=== PATIENT | female | born 1950 | race Asian ===

== ENCOUNTER 2016-10-10 21:27 | Emergency (ER) | payer MEDICARE ==
[2016-10-10] MEDS ORDERED: BOOSTRIX IM ONE (22:10)
[2016-10-10] MEDS ORDERED: ZOFRAN IV ONE (22:10)
[2016-10-10] MEDS ORDERED: SUBLIMAZE IV ONE (22:10)
[2016-10-10] MEDS ORDERED: TRIPLE ANTIBIOTIC TP ONE ×2 (22:11→22:15)
--- NOTE | 2016-10-10 22:16 | Emergency Department Report ---
HPI - General Chief Complaint: Fall Time Seen by Provider: 10/10/16 22:03 - [facility] HPI: Room 6 The patient is a 66-year-old female presenting with a chief complaint of pain after fall. The patient states that approximately 20:30 she was leaving the store when she tripped over a rug and fell landing on her right knee. The patient states she struck her trashcan with the left side of her head neck and left shoulder. Patient denies loss of consciousness. Patient complains of headache and pain in her left shoulder and neck. Patient claims pain in the right knee. The patient gives her pain a score of 10/10. Location: [see above] Duration: [see above] Quality: Pain Severity: 10/10 Modifying factors: [see above] Context: [see above] Mode of transportation: [not driving] ED Past Medical Hx - Past Medical History Previous Medical History?: Yes Hx Hypertension: Yes Hx Deep Vein Thrombosis: Yes (on Coumadin) Hx Liver Disease: Yes (Hep C) Hx Arthritis: Yes Additional medical history: chronic kidney disease - Surgical History Past Surgical History?: Yes Additional Surgical History: bilateral ankle surgery. scope both knees. fusion of neck. tonsillectomy. left hip replacement. hysterectomy - Family History Family history: no significant - Social History Smoking Status: Current Every Day Smoker (1/3 pack per day) Substance Use Type: None, Prescribed - Medications Home Medications: Home Medications Medication Instructions Recorded Confirmed Last Taken Type HYDROcodone/APAP 5-325 [[place] 1 - 2 each PO Q6HR PRN #14 tablet 10/11/16 Unknown Rx 5/325] ED Review of Systems ROS: Stated complaint: FALL Other details as noted in HPI Comment: All other systems reviewed and negative Constitutional: denies: chills, fever Eyes: denies: eye pain, eye discharge, vision change ENT: denies: ear pain, throat pain Respiratory: denies: cough, shortness of breath, wheezing Cardiovascular: denies: chest pain, palpitations Endocrine: no symptoms reported Gastrointestinal: denies: abdominal pain, nausea, diarrhea Genitourinary: denies: urgency, dysuria, discharge Musculoskeletal: arthralgia, myalgia Skin: denies: rash, lesions Neurological: headache Psychiatric: denies: anxiety, depression Hematological/Lymphatic: denies: easy bleeding, easy bruising Physical Exam - Physical Exam Vital Signs: Vital Signs 10/10/16 22:04 Temperature 98.3 F Pulse Rate 83 Respiratory 18 Rate Blood Pressure 160/66 Blood Pressure 160/60 [Left] O2 Sat by Pulse 96 Oximetry Physical Exam: GENERAL: The patient is well-developed well-nourished female lying on stretcher appearing to be in moderate discomfort. [] HEENT: Normocephalic. Atraumatic. Extraocular motions are intact. Patient has moist mucous membranes. NECK: Supple. Trachea midline CHEST/LUNGS: Clear to auscultation. There is no respiratory distress noted. HEART/CARDIOVASCULAR: Regular. There is no tachycardia. There is no gallop rub or murmur. ABDOMEN: Abdomen is soft, nontender. Patient has normal bowel sounds. There is no abdominal distention. SKIN: There is a small abrasion to the palm of the left hand. Hemostatic. There is ecchymosis to the right knee. There is no edema. There is no diaphoresis. NEURO: The patient is awake, alert, and oriented. The patient is cooperative. The patient has no focal neurologic deficits. The patient has normal speech. Cranial nerves II through XII grossly intact, impregnating helper 5+/5 MUSCULOSKELETAL: There is tenderness and mild edema of the right knee. ED Course Vital Signs 10/10/16 22:04 Temperature 98.3 F Pulse Rate 83 Respiratory 18 Rate Blood Pressure 160/66 Blood Pressure 160/60 [Left] O2 Sat by Pulse 96 Oximetry ED Medical Decision Making - Lab Data Result diagrams: 10/10/16 22:57 10/10/16 22:27 Laboratory Tests 10/10/16 10/10/16 10/10/16 22:27 22:57 22:57 WBC 8.9 RBC 3.67 Hgb 12.0 Hct 35.9 MCV 98 H MCH 33 H MCHC 33 RDW 12.8 L Plt Count 229 Lymph % (Auto) 42.0 H [place] % (Auto) 8.7 H Eos % (Auto) 2.8 Baso % (Auto) 1.4 Lymph # 3.7 [place] # 0.8 Eos # 0.3 Baso # 0.1 Seg Neutrophils % 45.1 Seg Neutrophils # 4.0 PT 22.7 H INR 2.00 H APTT 30.6 Sodium 139 Potassium 4.2 Chloride 103.3 Carbon Dioxide 21 L Anion Gap 19 BUN 23 H Creatinine 0.8 Estimated GFR > 60 BUN/Creatinine Ratio 28.75 Glucose 102 H Calcium 9.5 - Radiology Data Radiology results: report reviewed (CT head, CT cervical spine), image reviewed (CT head, CT cervical spine, right knee x-ray, left shoulder x-ray) interpreted by me: Right knee x-ray-no acute fracture Left shoulder x-ray-no acute fracture CT head, CT cervical spine (read by radiologist)-no acute fractures, no intracranial hemorrhage - Differential Diagnosis ICH, clavicular fracture, right knee effusion, tibial plateau fracture Critical care attestation.: If time is entered above; I have spent that time in minutes in the direct care of this critically ill patient, excluding procedure time. ED Disposition Clinical Impression: Closed head injury, Contusion of right knee, Contusion of left shoulder Disposition: DISCHARGED TO HOME OR SELFCARE Is pt being admited?: No Does the pt Need Aspirin: No Condition: Stable Instructions: Knee Effusion (ED), Knee Immobilizer (ED) Additional Instructions: Return to the emergency department immediately should you develop worsening symptoms, fever, inability to tolerate food or liquid or any other concerns. Prescriptions: HYDROcodone/APAP 5-325 [[place] 5/325] 1 - 2 each PO Q6HR PRN #14 tablet PRN Reason: Pain Referrals: PRIMARY CARE, [Primary Care Provider] - 3-5 Days ELIA IRENE MD [Staff Physician] - 3-5 Days (Dr. Irene is an orthopedic surgeon. Please follow up with him for further evaluation) Time of Disposition: 01:07
[2016-10-10 22:50] LABS: Anion Gap 19 mmol/L; BUN/Creatinine Ratio 28.75; Blood Urea Nitrogen 23 mg/dL (7-17); Calcium 9.5 mg/dL (8.4-10.2); Carbon Dioxide 21 mmol/L (22-30); Chloride 103.3 mmol/L (98-107); Glucose 102 mg/dL (65-100); Potassium 4.2 mmol/L (3.6-5.0); Sodium 139 mmol/L (137-145)
[2016-10-10 23:17] LABS: Basophils % (Auto) 1.4 % (0.0-1.8); Eosinophils % (Auto) 2.8 % (0.0-4.3); Hematocrit 35.9 % (30.3-42.9); Mean Corpuscular HGB Conc 33 % (30-34); Mean Corpuscular Hemoglobin 33 pg (28-32); Mean Corpuscular Volume 98 fl (79-97); Platelet Count 229 K/mm3 (140-440); Red Blood Count 3.67 M/mm3 (3.65-5.03); Red Cell Distribution Width 12.8 % (13.2-15.2); White Blood Count 8.9 K/mm3 (4.5-11.0)
[2016-10-10 23:27] LABS: Partial Thromboplastin Time 30.6 Sec. (24.2-36.6)
--- NOTE | 2016-10-11 00:54 | Cat Scan Report ---
FINAL REPORT PROCEDURE: CT HEAD/BRAIN WO CON TECHNIQUE: Computerized tomography of the head was performed without contrast material. HISTORY: pain after fall. On Coumadin COMPARISON: No prior studies are available for comparison. FINDINGS: Skull and scalp: Normal. Paranasal sinuses: Normal. Ventricles and subarachnoid spaces: There is mild central and cortical atrophy. There is no hydrocephalus or asymmetry.. Cerebrum: No evidence of hemorrhage, acute infarction or mass . Cerebellum and brainstem: No evidence of hemorrhage, acute infarction or mass. Vasculature: Normal. Comments: None. IMPRESSION: There is no acute intracranial abnormality. There is no skull fracture or intracranial hemorrhage.
--- NOTE | 2016-10-11 01:00 | Cat Scan Report ---
FINAL REPORT PROCEDURE: CT CERVICAL SPINE WO CON TECHNIQUE: Computerized tomography of the cervical spine was performed from the skull base to T1 without contrast material. HISTORY: pain after fall. On Coumadin COMPARISON: No prior studies are available for comparison. FINDINGS: There straightening of the cervical spine. There is hardware transfixing C3 through C7. The hardware is intact. There is osteophytic ridging causing foraminal stenosis at C3-C4, C5-C6, C6-C7-C7-T1. There are no fractures or malalignments. The skull base and the foramen magnum are intact. Prevertebral soft tissues are normal in thickness. IMPRESSION: There are chronic changes as described. No acute abnormality is identified..
[2016-10-11] MEDS ORDERED: SUBLIMAZE IV ONE (01:04)
[2016-10-11 02:13] VITALS: BP 155/75
--- NOTE | 2016-10-11 08:21 | XRay Report ---
LEFT SHOULDER RADIOGRAPHS INDICATION: Pain after fall. Limited movement. COMPARISON: None similar. FINDINGS: Frontal and Y views of the left shoulder, 3 projections demonstrate grossly normal humeral head contour and intact glenohumeral and acromioclavicular articulations. Preserved scapular contour. Normal visualized soft tissues, left ribs and lung. Atherosclerotic vascular calcifications. Demineralized bones. Multilevel lower cervical fusion hardware. CONCLUSION: No acute left shoulder radiographic abnormality with few other findings, as described. Please correlate. Thank you for the opportunity to participate in this patient's care.
--- NOTE | 2016-10-11 08:44 | XRay Report ---
Right knee 3 views: History: Pain after fall. Findings: Narrowing of the medial and patellofemoral compartment knee joint. Sclerotic articular surfaces with peripheral osteophytes suggestive severe degenerative changes. No fracture. No soft tissue calcification. Impression: Severe degenerative changes right knee.
== END 2016-10-11 01:25 | disposition home or self-care (01) ==
LOC: ED 21:27
DX: S09.90XA Unspecified injury of head, initial encounter (principal); S80.01XA Contusion of right knee, initial encounter; S40.012A Contusion of left shoulder, initial encounter; I82.409 Acute embolism and thrombosis of unspecified deep veins of unspecified lower extremity; Z86.19 Personal history of other infectious and parasitic diseases; I12.9 Hypertensive chronic kidney disease with stage 1 through stage 4 chronic kidney disease, or unspecified chronic kidney disease; N18.9 Chronic kidney disease, unspecified; M19.90 Unspecified osteoarthritis, unspecified site; F17.200 Nicotine dependence, unspecified, uncomplicated; Z88.0 Allergy status to penicillin; Z88.2 Allergy status to sulfonamides; Z88.5 Allergy status to narcotic agent; W01.198A Fall on same level from slipping, tripping and stumbling with subsequent striking against other object, initial encounter; Y93.89 Activity, other specified; Y99.8 Other external cause status; Y92.89 Other specified places as the place of occurrence of the external cause
CPT/HCPCS: 29505; 36415; 70450; 72125; 73030; 73562; 80048; 85025; 85610; 85730; 96374; 96375; 96376; 99285; J2405; J3010; 90715; A6250